=== PATIENT | male | born 1975 | race African-American/Black ===

== ENCOUNTER 2019-01-02 05:48 | Inpatient (IN) | payer MEDICAID ==
[~2019-01-02] VITALS: Ht 175.3 cm; Wt 77.1 kg
[2019-01-02 05:50] VITALS: BP_SYST 109
[2019-01-02] MEDS ORDERED: METO2.5T6 PO (06:15)
[2019-01-02] MEDS ORDERED: SPIR25TA PO (06:15)
[2019-01-02] MEDS ORDERED: AMLO5TAB4 PO (06:16)
[2019-01-02] MEDS ORDERED: COR25 PO (06:16)
[2019-01-02] MEDS ORDERED: BUME2TAB7 PO (06:17)
[2019-01-02] MEDS ORDERED: ACET-73 PO (06:17)
[2019-01-02] MEDS ORDERED: LISI-600 PO (06:18)
[2019-01-02] MEDS ORDERED: BENZ-16 PO (06:20)
[2019-01-02] MEDS ORDERED: FURO-150 PO (06:23)
[2019-01-02] MEDS ORDERED: LIP80 PO (06:23)
[2019-01-02] MEDS ORDERED: IBUP-1969 PO (06:23)
[2019-01-02] MEDS ORDERED: ASPI-1153 PO (06:24)
[2019-01-02] MEDS ORDERED: DIGO125T79 PO (06:24)
[2019-01-02] MEDS ORDERED: HYDR-4039 PO (06:25)
[2019-01-02] MEDS ORDERED: LOSA25TA3 PO (06:26)
[2019-01-02] MEDS ORDERED: ALBUTEROL SULFATE 0.083% 2.5 MG/3 ML VIAL.NEB INH ONE (06:30)
[2019-01-02] MEDS ORDERED: ONDANSETRON HCL 4 MG/2 ML VIAL IVP ONE (06:30)
[2019-01-02] MEDS ORDERED: ASPIRIN 81 MG TAB.CHEW PO ONE (06:30)
[2019-01-02] MEDS ORDERED: MORPHINE 2 MG/ML INJ. SYRINGE IVP ONE (06:30)
[2019-01-02] MEDS ORDERED: fentaNYL CITRATE/PF 100 MCG/2 ML AMP IVP ONE (06:45)
[2019-01-02 06:54] LABS: BASOPHILS # (AUTO) 0.1 K/uL (0.0-0.2); EOSINOPHILS % (AUTO) 0.4 % (0.0-4.0); HEMATOCRIT 37.4 % (36-54); HEMOGLOBIN 12.5 g/dL (14.0-18.0); LYMPHOCYTES # (AUTO) 1.7 K/uL (1.0-5.5); LYMPHOCYTES % (AUTO) 24.7 % (20.5-51.5); MEAN CORPUSCULAR HEMOGLOBIN 29 pg (27-31); MEAN CORPUSCULAR HGB CONC 33 % (32-36); MEAN CORPUSCULAR VOLUME 88 fL (79.0-98.0); MONOCYTES # (AUTO) 0.3 K/uL (0.0-1.0); MONOCYTES % (AUTO) 3.6 % (1.7-9.3); NEUTROPHILS # (AUTO) 4.9 K/uL (1.8-7.7); NEUTROPHILS % (AUTO) 70.3 % (40.0-70.0); PLATELET COUNT (AUTO) 268 K/uL (130-430); RED BLOOD CELL COUNT(AUTO) 4.24 MIL/uL (4.2-6.2); RED CELL DISTRIBUTION WIDTH 14.3 % (9.0-15.0); WHITE BLOOD COUNT (AUTO) 6.9 K/uL (4.8-10.8)
[2019-01-02 07:12] LABS: CALCIUM 8.8 mg/dL (8.4-11.0); CREATININE 1.81 mg/dL (0.55-1.30); POTASSIUM 3.7 mmol/L (3.5-5.1)
[2019-01-02 07:16] LABS: ALBUMIN 3.7 g/dL (3.4-4.8); DIGOXIN 0.6 ng/mL (0.80-2.00); TOTAL BILIRUBIN 1.3 mg/dL (0.0-1.0)
[2019-01-02] MEDS ORDERED: MUPIROCIN 2% TOPICAL OINTMENT 22 GM NS PRN (09:15)
[2019-01-02] MEDS ORDERED: ZOLPIDEM TARTRATE 5 MG TABLET PO PRN (09:15)
[2019-01-02] MEDS ORDERED: MAGNESIUM SULFATE 50 ML IV PRN (09:15)
[2019-01-02] MEDS ORDERED: ACETAMINOPHEN 325 MG TABLET PO PRN (09:15)
[2019-01-02] MEDS ORDERED: MORPHINE 2 MG/ML INJ. SYRINGE IVP PRN (09:15)
[2019-01-02] MEDS ORDERED: ONDANSETRON HCL 4 MG/2 ML VIAL IVP PRN (09:15)
[2019-01-02] MEDS ORDERED: LORazepam 2 MG/ML VIAL IVP PRN (09:15)
[2019-01-02] MEDS ORDERED: POTASSIUM CHLORIDE 20 MEQ TAB.PRT.SR PO PRN (09:15)
[2019-01-02 10:00] VITALS: BP_SYST 127
[2019-01-02] MEDS ORDERED: FUROSEMIDE 40 MG/4 ML VIAL IVP ONE (10:30)
[2019-01-02 10:46] VITALS: BP_SYST 127
[2019-01-02 12:07] VITALS: BP_SYST 117
[2019-01-02] MEDS: NACL 0.9% 1,000 ML IV SCH (14:11)
[2019-01-02 15:16] LABS: BILIRUBIN,URINE NEGATIVE (NEGATIVE); BLOOD, URINE NEGATIVE (NEGATIVE); CLARITY/URINE CLEAR (CLEAR); COLOR,URINE YELLOW (YELLOW); GLUCOSE,URINE NEGATIVE (NEGATIVE); KETONES,URINE NEGATIVE (NEGATIVE); LEUKOCYTE ESTERASE ,URINE NEGATIVE (NEGATIVE); NITRITE, URINE NEGATIVE (NEGATIVE); PH,URINE 5.5 (5.0-8.0); PROTEIN URINE NEGATIVE (NEGATIVE)
[2019-01-02 15:31] LABS: BARBITURATE, URINE NEGATIVE (NEG <=200); BENZODIAZEPINE, URINE NEGATIVE (NEG <=150); CANNABINOID, URINE POSITIVE (NEG <=50); COCAINE, URINE NEGATIVE (NEG <=150); METHAMPHETAMINES SCREEN,URINE NEGATIVE (NEG <=500); OPIATE, URINE NEGATIVE (NEG <=100); PHENCYCLIDINE SCREEN,URINE NEGATIVE (NEG <=25); UR TRICYCLIC ANTIDEPRESSANTS NEGATIVE (NEG <=300); URINE AMPHETAMINE NEGATIVE (NEG <=500); URINE METHADONE NEGATIVE (NEG <=200); URINE OXYCODONE SCREEN NEGATIVE (NEG <=100); URINE PROPOXYPHENE SCREEN NEGATIVE (NEG <=300)
[2019-01-02 17:07] VITALS: BP_SYST 108
[2019-01-02 19:50] VITALS: BP_SYST 108
[2019-01-02] MEDS: ATORVASTATIN 20 MG TABLET PO SCH (20:25)
[2019-01-02] MEDS: CARVEDILOL 25 MG TABLET (COREG) PO SCH (20:28)
[2019-01-02] MEDS: HEPARIN SODIUM,PORCINE 5000 UNITS/ML VIAL SUBCUT SCH (20:32)
[2019-01-02] MEDS ORDERED: BUMETANIDE 1 MG TABLET PO SCH (21:00)
[2019-01-03 01:00] VITALS: BP_SYST 105
[2019-01-03] MEDS: MORPHINE 2 MG/ML INJ. SYRINGE IVP PRN ×2 (04:53→21:12)
[2019-01-03 07:13] LABS: BASOPHILS % (AUTO) 0.6 % (0.0-2.0); EOSINOPHILS % (AUTO) 0.5 % (0.0-4.0); HEMATOCRIT 34.2 % (36-54); HEMOGLOBIN 11.5 g/dL (14.0-18.0); LYMPHOCYTES # (AUTO) 1.9 K/uL (1.0-5.5); LYMPHOCYTES % (AUTO) 31.9 % (20.5-51.5); MEAN CORPUSCULAR HEMOGLOBIN 30 pg (27-31); MEAN CORPUSCULAR HGB CONC 34 % (32-36); MEAN CORPUSCULAR VOLUME 88 fL (79.0-98.0); MONOCYTES # (AUTO) 0.4 K/uL (0.0-1.0); MONOCYTES % (AUTO) 7.1 % (1.7-9.3); NEUTROPHILS # (AUTO) 3.5 K/uL (1.8-7.7); NEUTROPHILS % (AUTO) 59.9 % (40.0-70.0); PLATELET COUNT (AUTO) 239 K/uL (130-430); RED BLOOD CELL COUNT(AUTO) 3.91 MIL/uL (4.2-6.2); RED CELL DISTRIBUTION WIDTH 14.1 % (9.0-15.0); WHITE BLOOD COUNT (AUTO) 5.9 K/uL (4.8-10.8)
[2019-01-03 07:46] LABS: CALCIUM 8.9 mg/dL (8.4-11.0); CREATININE 1.98 mg/dL (0.55-1.30); POTASSIUM 3.9 mmol/L (3.5-5.1)
[2019-01-03 08:00] VITALS: BP_SYST 109
[2019-01-03] MEDS: ASPIRIN 81 MG TABLET(ECOTRIN) PO SCH (09:07)
[2019-01-03] MEDS: FUROSEMIDE 40 MG/4 ML VIAL IVP SCH (09:07)
[2019-01-03] MEDS: DIGOXIN 0.125 MG TABLET PO SCH (09:08)
[2019-01-03] MEDS: CARVEDILOL 25 MG TABLET (COREG) PO SCH ×2 (09:09→20:55)
[2019-01-03] MEDS: HEPARIN SODIUM,PORCINE 5000 UNITS/ML VIAL SUBCUT SCH ×2 (09:19→20:58)
[2019-01-03] MEDS: amLODIPine BESYLATE 5 MG TABLET PO SCH (11:22)
[2019-01-03] MEDS: DOCUSATE SODIUM 100 MG CAPSULE PO PRN ×2 (11:29→20:54)
[2019-01-03 12:31] VITALS: BP_SYST 115
[2019-01-03 16:45] VITALS: BP_SYST 119
[2019-01-03 19:50] VITALS: BP_SYST 112
[2019-01-03] MEDS: ATORVASTATIN 20 MG TABLET PO SCH (20:54)
[2019-01-04 00:28] VITALS: BP_SYST 95
[2019-01-04 06:51] LABS: BASOPHILS % (AUTO) 0.7 % (0.0-2.0); EOSINOPHILS % (AUTO) 0.5 % (0.0-4.0); HEMATOCRIT 32.3 % (36-54); HEMOGLOBIN 10.8 g/dL (14.0-18.0); LYMPHOCYTES # (AUTO) 1.9 K/uL (1.0-5.5); LYMPHOCYTES % (AUTO) 33.8 % (20.5-51.5); MEAN CORPUSCULAR HEMOGLOBIN 29 pg (27-31); MEAN CORPUSCULAR HGB CONC 34 % (32-36); MEAN CORPUSCULAR VOLUME 88 fL (79.0-98.0); MONOCYTES # (AUTO) 0.5 K/uL (0.0-1.0); MONOCYTES % (AUTO) 8.9 % (1.7-9.3); NEUTROPHILS # (AUTO) 3.1 K/uL (1.8-7.7); NEUTROPHILS % (AUTO) 56.1 % (40.0-70.0); PLATELET COUNT (AUTO) 214 K/uL (130-430); RED BLOOD CELL COUNT(AUTO) 3.68 MIL/uL (4.2-6.2); RED CELL DISTRIBUTION WIDTH 14.2 % (9.0-15.0); WHITE BLOOD COUNT (AUTO) 5.6 K/uL (4.8-10.8)
[2019-01-04 07:32] LABS: CALCIUM 8.5 mg/dL (8.4-11.0); CREATININE 2.19 mg/dL (0.55-1.30); POTASSIUM 3.7 mmol/L (3.5-5.1)
[2019-01-04 08:00] VITALS: BP_SYST 102
[2019-01-04] MEDS: ASPIRIN 81 MG TABLET(ECOTRIN) PO SCH (08:27)
[2019-01-04] MEDS: HEPARIN SODIUM,PORCINE 5000 UNITS/ML VIAL SUBCUT SCH (08:28)
[2019-01-04] MEDS: NACL 0.9% 1,000 ML IV SCH (08:31)
[2019-01-04] MEDS: amLODIPine BESYLATE 5 MG TABLET PO SCH (09:00)
[2019-01-04] MEDS: CARVEDILOL 25 MG TABLET (COREG) PO SCH ×2 (09:00→20:51)
[2019-01-04] MEDS: FUROSEMIDE 40 MG/4 ML VIAL IVP SCH (09:00)
[2019-01-04 10:00] VITALS: BP_SYST 94
[2019-01-04] MEDS: DIGOXIN 0.125 MG TABLET PO SCH (10:26)
[2019-01-04] MEDS ORDERED: FURO-150 PO (12:33)
[2019-01-04] MEDS ORDERED: COR25 PO (12:33)
[2019-01-04 12:42] VITALS: BP_SYST 115
[2019-01-04 17:13] VITALS: BP_SYST 104
[2019-01-04 20:00] VITALS: BP_SYST 134
[2019-01-04] MEDS: ATORVASTATIN 20 MG TABLET PO SCH (20:51)
[2019-01-05 01:37] VITALS: BP_SYST 123
[2019-01-05 08:22] VITALS: BP_SYST 111
[2019-01-05] MEDS: FUROSEMIDE 40 MG/4 ML VIAL IVP SCH (08:43)
[2019-01-05] MEDS: DIGOXIN 0.125 MG TABLET PO SCH (08:44)
[2019-01-05] MEDS: ASPIRIN 81 MG TABLET(ECOTRIN) PO SCH (08:44)
[2019-01-05] MEDS: amLODIPine BESYLATE 5 MG TABLET PO SCH (08:49)
[2019-01-05] MEDS: CARVEDILOL 25 MG TABLET (COREG) PO SCH ×3 (09:00→21:43)
[2019-01-05 10:46] LABS: BASOPHILS % (AUTO) 0.5 % (0.0-2.0); EOSINOPHILS % (AUTO) 0.6 % (0.0-4.0); HEMATOCRIT 35.2 % (36-54); HEMOGLOBIN 11.6 g/dL (14.0-18.0); LYMPHOCYTES # (AUTO) 1.6 K/uL (1.0-5.5); LYMPHOCYTES % (AUTO) 27.6 % (20.5-51.5); MEAN CORPUSCULAR HEMOGLOBIN 29 pg (27-31); MEAN CORPUSCULAR HGB CONC 33 % (32-36); MEAN CORPUSCULAR VOLUME 88 fL (79.0-98.0); MONOCYTES # (AUTO) 0.4 K/uL (0.0-1.0); NEUTROPHILS # (AUTO) 3.7 K/uL (1.8-7.7); NEUTROPHILS % (AUTO) 64.3 % (40.0-70.0); PLATELET COUNT (AUTO) 209 K/uL (130-430); RED BLOOD CELL COUNT(AUTO) 3.98 MIL/uL (4.2-6.2); RED CELL DISTRIBUTION WIDTH 14.2 % (9.0-15.0); WHITE BLOOD COUNT (AUTO) 5.7 K/uL (4.8-10.8)
[2019-01-05 10:56] LABS: CALCIUM 8.5 mg/dL (8.4-11.0); CREATININE 2.36 mg/dL (0.55-1.30); POTASSIUM 4.1 mmol/L (3.5-5.1)
[2019-01-05 12:15] VITALS: BP_SYST 110
[2019-01-05 16:48] VITALS: BP_SYST 107
[2019-01-05 20:00] VITALS: BP_SYST 102
[2019-01-05] MEDS: ATORVASTATIN 20 MG TABLET PO SCH (20:21)
[2019-01-05] MEDS: MORPHINE 2 MG/ML INJ. SYRINGE IVP PRN (20:37)
[2019-01-06 03:23] VITALS: BP_SYST 108
[2019-01-06 04:00] VITALS: BP_SYST 122
[2019-01-06 06:17] LABS: BASOPHILS % (AUTO) 0.4 % (0.0-2.0); EOSINOPHILS % (AUTO) 0.5 % (0.0-4.0); HEMATOCRIT 35.9 % (36-54); HEMOGLOBIN 11.9 g/dL (14.0-18.0); LYMPHOCYTES % (AUTO) 32.7 % (20.5-51.5); MEAN CORPUSCULAR HEMOGLOBIN 29 pg (27-31); MEAN CORPUSCULAR HGB CONC 33 % (32-36); MEAN CORPUSCULAR VOLUME 88 fL (79.0-98.0); MONOCYTES # (AUTO) 0.5 K/uL (0.0-1.0); MONOCYTES % (AUTO) 7.3 % (1.7-9.3); NEUTROPHILS # (AUTO) 3.7 K/uL (1.8-7.7); NEUTROPHILS % (AUTO) 59.1 % (40.0-70.0); PLATELET COUNT (AUTO) 217 K/uL (130-430); RED BLOOD CELL COUNT(AUTO) 4.09 MIL/uL (4.2-6.2); RED CELL DISTRIBUTION WIDTH 14.4 % (9.0-15.0); WHITE BLOOD COUNT (AUTO) 6.2 K/uL (4.8-10.8)
[2019-01-06 06:36] LABS: CALCIUM 8.7 mg/dL (8.4-11.0); CREATININE 2.12 mg/dL (0.55-1.30); POTASSIUM 3.7 mmol/L (3.5-5.1)
[2019-01-06 08:31] VITALS: BP_SYST 109
[2019-01-06] MEDS: FUROSEMIDE 40 MG/4 ML VIAL IVP SCH (08:43)
[2019-01-06] MEDS: ASPIRIN 81 MG TABLET(ECOTRIN) PO SCH (08:44)
[2019-01-06] MEDS: DIGOXIN 0.125 MG TABLET PO SCH (08:44)
[2019-01-06] MEDS: amLODIPine BESYLATE 5 MG TABLET PO SCH (08:44)
[2019-01-06 12:00] VITALS: BP_SYST 109
[2019-01-06 15:33] VITALS: BP_SYST 107
[2019-01-06 19:50] VITALS: BP_SYST 136
[2019-01-06] MEDS: ATORVASTATIN 20 MG TABLET PO SCH (20:19)
[2019-01-06] MEDS: CARVEDILOL 25 MG TABLET (COREG) PO SCH (20:22)
[2019-01-07 00:05] VITALS: BP_SYST 106
[2019-01-07 06:19] LABS: CALCIUM 8.8 mg/dL (8.4-11.0); CREATININE 1.92 mg/dL (0.55-1.30); POTASSIUM 3.8 mmol/L (3.5-5.1)
[2019-01-07 06:43] LABS: BASOPHILS % (AUTO) 0.4 % (0.0-2.0); EOSINOPHILS % (AUTO) 0.4 % (0.0-4.0); HEMATOCRIT 35.5 % (36-54); HEMOGLOBIN 11.7 g/dL (14.0-18.0); LYMPHOCYTES # (AUTO) 1.6 K/uL (1.0-5.5); LYMPHOCYTES % (AUTO) 29.3 % (20.5-51.5); MEAN CORPUSCULAR HEMOGLOBIN 29 pg (27-31); MEAN CORPUSCULAR HGB CONC 33 % (32-36); MEAN CORPUSCULAR VOLUME 87 fL (79.0-98.0); MONOCYTES # (AUTO) 0.4 K/uL (0.0-1.0); MONOCYTES % (AUTO) 7.5 % (1.7-9.3); NEUTROPHILS # (AUTO) 3.4 K/uL (1.8-7.7); NEUTROPHILS % (AUTO) 62.4 % (40.0-70.0); PLATELET COUNT (AUTO) 205 K/uL (130-430); RED BLOOD CELL COUNT(AUTO) 4.06 MIL/uL (4.2-6.2); RED CELL DISTRIBUTION WIDTH 14.8 % (9.0-15.0); WHITE BLOOD COUNT (AUTO) 5.4 K/uL (4.8-10.8)
[2019-01-07] MEDS: CARVEDILOL 25 MG TABLET (COREG) PO SCH (09:00)
[2019-01-07] MEDS: DIGOXIN 0.125 MG TABLET PO SCH (10:01)
[2019-01-07] MEDS: ASPIRIN 81 MG TABLET(ECOTRIN) PO SCH (10:02)
[2019-01-07] MEDS: amLODIPine BESYLATE 5 MG TABLET PO SCH (10:02)
[2019-01-07] MEDS: FUROSEMIDE 40 MG/4 ML VIAL IVP SCH (10:02)
[2019-01-07 11:48] VITALS: BP_SYST 119
[2019-01-07 12:22] VITALS: BP_SYST 119
[2019-01-07 16:06] VITALS: BP_SYST 116
[2019-01-07] MEDS ORDERED: FUROSEMIDE 40 MG/4 ML VIAL IVP ONE (18:00)
[2019-01-07 18:17] VITALS: BP_SYST 116
== END 2019-01-07 21:20 | disposition home or self-care (01) | DRG 194 ==
LOC: SED 05:48 → STU 09:13
PROVIDERS: ADMIT General Practice; ATTEND General Practice
DX: I13.0 Hypertensive heart and chronic kidney disease with heart failure and stage 1 through stage 4 chronic kidney disease, or unspecified chronic kidney disease (principal); I21.A1 Myocardial infarction type 2; N17.0 Acute kidney failure with tubular necrosis; R65.10 Systemic inflammatory response syndrome (SIRS) of non-infectious origin without acute organ dysfunction; I42.0 Dilated cardiomyopathy; E87.1 Hypo-osmolality and hyponatremia; N18.3 Chronic kidney disease, stage 3 (moderate); I50.43 Acute on chronic combined systolic (congestive) and diastolic (congestive) heart failure; E78.5 Hyperlipidemia, unspecified; F17.210 Nicotine dependence, cigarettes, uncomplicated; I25.10 Atherosclerotic heart disease of native coronary artery without angina pectoris; J44.9 Chronic obstructive pulmonary disease, unspecified; E78.00 Pure hypercholesterolemia, unspecified; I34.0 Nonrheumatic mitral (valve) insufficiency; Z79.82 Long term (current) use of aspirin; Z79.899 Other long term (current) drug therapy
CPT/HCPCS: 36415; 71045; 76770; 80048; 80053; 80162-TC; 80307; 81003; 82550-TC; 83036; 83605; 83735-TC; 83880; 84484; 85025; 85379; 87040-TC; 87081; 93005; 93306; 94640; 96361; 96365; 96375; 99285; G0378; J1644; J1940; J1956; J2060; J2270; J2405; J3010; J3475; J7030; J7613